=== PATIENT | male | born 1965 | race African-American/Black ===

== ENCOUNTER 2022-02-09 10:38 | Emergency (ER) | payer MEDICAID ==
[~2022-02-09] VITALS: Ht 185.4 cm; Wt 97.0 kg
[2022-02-09] MEDS ORDERED: KETOROLAC 60MG/2ML VIAL IM ONE (11:00)
[2022-02-09 13:27] VITALS: BP 142/96
[2022-02-09 13:57] LABS: CHLORIDE 108 mEq/L (98-107)
[2022-02-09 13:58] LABS: BASOPHILS % 0.9 % (0.0-2.0); EOSINOPHILS % 6.9 % (0.0-5.0); HEMATOCRIT. 43.6 % (42.0-52.0); HEMOGLOBIN. 14.4 g/dL (14.0-18.0); LYMPHOCYTES % 37.2 % (20.0-50.0); MEAN PLATELET VOLUME 7.5 fl (7.4-10.4); MONOCYTES % 9.9 % (2.0-8.0); NEUTROPHILS % 45.1 % (40.0-76.0); PLATELET 234 x1000/uL (130-400); RED BLOOD CELL COUNT 5.13 mill/uL (4.7-6.1); RED CELL DISTRIBUTION WIDTH 13.5 % (11.6-14.6)
[2022-02-09] MEDS ORDERED: KETOROLAC 30MG/ML VIAL IM NR (14:00)
[2022-02-09 14:03] LABS: C REACTIVE PROTEIN QUANT 0.7 mg/L (0.0-3.0)
[2022-02-09] MEDS ORDERED: NAPR500T7 MT (15:57)
== END 2022-02-09 16:08 | disposition home or self-care (01) ==
LOC: ER 10:38
DX: M25.551 Pain in right hip (principal)
CPT/HCPCS: 36415; 73502; 76881; 80053; 85025; 85651; 86140; 96372; 99285; J1885